=== PATIENT | female | born 1970 | race Caucasian/White ===

== ENCOUNTER → 2024-05-10 12:28 | Outpatient (REF) | payer OTHER, SELFPAY | LOC: HWRAD 12:28 | PROVIDERS: ATTENDING PHYSICIAN Family Medicine | DX: I88.9 Nonspecific lymphadenitis, unspecified (principal); M54.2 Cervicalgia | CPT/HCPCS: 70491; Q9967 ==

== ENCOUNTER → 2024-05-17 09:32 | Outpatient (REF) | payer OTHER, SELFPAY | LOC: WDC 09:32 | PROVIDERS: ATTENDING PHYSICIAN Family Medicine | DX: N63.20 Unspecified lump in the left breast, unspecified quadrant (principal); R92.8 Other abnormal and inconclusive findings on diagnostic imaging of breast | CPT/HCPCS: 77061; 77065 ==

== ENCOUNTER → 2024-08-17 09:52 | Outpatient (REF) | payer OTHER, SELFPAY | LOC: PAVMRI 09:52 | PROVIDERS: ATTENDING PHYSICIAN Family Medicine | DX: M54.12 Radiculopathy, cervical region (principal) | CPT/HCPCS: 72141; 72148 ==

== ENCOUNTER 2024-11-06 10:58 | Emergency (ER) | payer OTHER, SELFPAY ==
[2024-11-06 10:59] VITALS: BP 157/96
--- NOTE | 2024-11-06 11:58 | ED.GENMED ---
History of Present Illness
<LYNDSEY Perez Last Filed: 11/06/24 12:01>
General
Chief Complaint: Vaginal Bleeding
Source: patient
Exam Limitations: none
Time Seen by Provider: 11/06/24 11:45
History of Present Illness
History of Present Illness:
54-year-old female presents complaining of lower abdominal pain for the past several days. The pain was severe this morning the pain then went away but she started with heavy vaginal bleeding the pain resided. She has not had a menstrual cycle in
5 months. Of note 2 weeks ago she was found to have walking pneumonia was treated with prednisone and doxycycline. She finished the [employer] psych about 6 days ago and since then has been having loose stools. She was complaining of pain and loose
stool and family doctor placed her on Flagyl potential C. difficile. No fevers. She spoke with her ACQUISITION EDITOR as she started bleeding heavily this morning and was advised to come here for further evaluation
Past History
<LYNDSEY Perez Last Filed: 11/06/24 12:01>
Past History
ED Past Medical History: Asthma and Other
ED Past Surgical History:
Social History
Tobacco: Non-smoker
Alcohol: None
Drug: None
Personal:
Living: with family
Employment: Employed
Family History
Family History: Hypertension
Phy Exam
<LYNDSEY Perez Last Filed: 11/06/24 12:01>
Physical Exam
Physical Exam:
General: Well appearing female NAD
HEENT: NC/AT
Heart: RRR, no murmurs
Lungs: Clear no wheeze
Abdomen: Soft tender to lower abdomen bilaterally no guarding or rebound
Extremities: No cyanosis
Course
<LYNDSEY Perez Last Filed: 11/06/24 12:01>
Orders/Labs/Results
Orders:
Orders
11/06/24 11:54
0.9% Sodium Chloride 1000 ml [Nss] 1,000 ml IV BOLUS
US Pelvis W Transvag Combined Urgent
Comment:
Reason For Exam: pain, bleeding
11/06/24 13:39
Complete Blood Count/With Diff Urgent
Comprehensive Metabolic Panel Urgent
Urinalysis Urgent
Urine Microscopic Urgent
11/06/24 13:50
CT Abd/Pel (IV only)-DH only Urgent
Reason For Exam: VAGINAL BLEEDING
Abnormal Lab Results
11/06/24
13:39
RBC 4.04 L 10^6/uL
(4.20-5.40)
Hct 36.0 L %
(37.0-47.0)
Monocytes % 10.4 H %
(1.7-9.3)
Chloride 108 H mmol/L
(98-107)
Carbon Dioxide 31 H mmol/L
(22-30)
Urine Occult Blood 4+ A
(Negative)
Urine RBC 26-30 A /HPF
(0-2)
Urine Bacteria Few A
(Negative)
11/06/24 13:39
11/06/24 13:39
Vital Signs
Initial and Last Documented VS:
Initial Vital Signs
Temp Pulse Resp BP Pulse Ox
98.4 F 87 16 157/96 100
11/06/24 10:59 11/06/24 10:59 11/06/24 10:59 11/06/24 10:59 11/06/24 10:59
Last Documented Vital Signs
Temp Pulse Resp BP Pulse Ox
98.4 F 87 18 130/91 99
11/06/24 10:59 11/06/24 17:48 11/06/24 14:30 11/06/24 17:42 11/06/24 17:43
<Rod Grace PA-C - Last Filed: 11/06/24 18:34>
Orders/Labs/Results
Orders:
Orders
11/06/24 11:54
0.9% Sodium Chloride 1000 ml [Nss] 1,000 ml IV BOLUS
US Pelvis W Transvag Combined Urgent
Comment:
Reason For Exam: pain, bleeding
11/06/24 13:39
Complete Blood Count/With Diff Urgent
Comprehensive Metabolic Panel Urgent
Urinalysis Urgent
Urine Microscopic Urgent
11/06/24 13:50
CT Abd/Pel (IV only)-DH only Urgent
Reason For Exam: VAGINAL BLEEDING
Abnormal Lab Results
11/06/24
13:39
RBC 4.04 L 10^6/uL
(4.20-5.40)
Hct 36.0 L %
(37.0-47.0)
Monocytes % 10.4 H %
(1.7-9.3)
Chloride 108 H mmol/L
(98-107)
Carbon Dioxide 31 H mmol/L
(22-30)
Urine Occult Blood 4+ A
(Negative)
Urine RBC 26-30 A /HPF
(0-2)
Urine Bacteria Few A
(Negative)
11/06/24 13:39
11/06/24 13:39
Vital Signs
Initial and Last Documented VS:
Initial Vital Signs
Temp Pulse Resp BP Pulse Ox
98.4 F 87 16 157/96 100
11/06/24 10:59 11/06/24 10:59 11/06/24 10:59 11/06/24 10:59 11/06/24 10:59
Last Documented Vital Signs
Temp Pulse Resp BP Pulse Ox
98.4 F 87 18 130/91 99
11/06/24 10:59 11/06/24 17:48 11/06/24 14:30 11/06/24 17:42 11/06/24 17:43
<Jhon Ortiz PA-C - Last Filed: 11/06/24 12:01>
MDM/Problems Addressed
Differential Diagnosis Includes:
Lower abdominal pain with vaginal bleeding. Consider fibroid versus ovarian cyst versus colitis given recent antibiotic use. Stool culture was given to [facility] as an outpatient today. C. difficile test was included in that regimen.
Will check labs. Ultrasound pelvis ordered.
<Rod Grace PA-C - Last Filed: 11/06/24 18:34>
*Critical Care Note
Total Time (30-74mins, 75-104mins- exclusive of procedures): Not Applicable
<Rod Grace PA-C - Last Filed: 11/06/24 18:34>
Patient Management
Discussion with other providers: Search Engine Marketing Manager
Escalation/DeEscalation of care consider admission/obs:
Patient received in signout at [address] scan results and reassessment.
CT scan findings of endocervical canal distention concerning for possible intraluminal mass with diagnostic possibilities cervical or endometrial carcinoma discussed with the patient and patient was provided with a printout of this CT as well as her
previous ultrasound report earlier today. Bleeding has since subsided significantly and patient remains hemodynamically stable. Patient was in contact with her ACQUISITION EDITOR already today but currently does not have an appointment scheduled. Patient was
provided with printouts of all of her studies and I contacted patient's [facility] office, Dr. Castellon, and spoke with the on-call provider who will place a note in patient's chart and have the office contact the patient for follow-up. Patient is aware
of return precautions and otherwise stable for discharge home.
ED Attending Note
<Jhon Ortiz PA-C - Last Filed: 11/06/24 12:01>
-
Portions of this chart may have been created with voice recognition software.� Occasional wrong word or��sound alike� substitutions may have occurred due to the inherent limitations of voice recognition software.
Discharge Plan
Departure
Patient Disposition: Home (Routine Discharge)
Date of Disposition: 11/06/24
Time of Disposition: 17:21
Patient with high blood pressure during this ER visit?: Yes
Discharge Problem:
Menorrhagia
Instructions: Bleeding After Menopause
Prescriptions:
No Action
mometasone [Nasonex] 17 GRAM spray,non-aerosol
2 spray intranasal DAILY Qty: 1 0RF
codeine-guaifenesin [Guaiatussin AC] 200 MG/20 MG liquid
5 - 10 ml PO .Q4-6HPRN PRN (Reason: COUGH) Qty: 6 0RF
levofloxacin 500 MG tablet
500 mg PO DAILY Qty: 10 0RF
methylprednisolone [Medrol (Kyle)] 4 MG/DOSE-PACK tablets,dose pack
4 mg PO . DIRECTED Qty: 1 0RF
Rx Instructions:
Take as instructed on package.
albuterol sulfate 1 PUFF HFA aerosol inhaler
1 - 2 puff inhalation .Q4-6HPRN PRN (Reason: WHEEZING) Qty: 1 0RF
oxymetazoline [Afrin Sinus (oxymetazoline)] 30 SPRAYS/15 ML spray,non-aerosol
2 sprays intranasal BID Qty: 15 0RF
acetaminophen 325 MG tablet
650 mg PO Q4HPRN PRN (Reason: pain/fever)
azelastine 137 MCG/SPRAY aerosol,spray
1 spray intranasal DAILY
fexofenadine-pseudoephedrine 1 EACH tablet extended release 12 hr
1 ea PO DAILY
budesonide-formoterol [Symbicort] 10.2 GM HFA aerosol inhaler
2 puff inhalation R BID
Xopenex
PRN PRN (Reason: sob)
Zithromax Z-Kyle
PO BID
Patient Comments:
5 day treatment, to finish on Monday09/28/2009
Referrals:
Jennifer Sal DO [Family Provider, Family Practice]
Interventions
Interventions:
*Risk Screen - Suicide Last Done: 11/06/24 11:02
*General Assessment Last Done: 11/06/24 14:30
*Neglect/Abuse Screening Last Done: 11/06/24 11:02
*ED- Fall Risk Assessment Last Done: 11/06/24 17:52
*ED COVID-19 Vaccine History Last Done: 11/06/24 16:05
*Nursing Disposition Last Done: 11/06/24 17:50
ED-Female Genitourinary Assessment Last Done: 11/06/24 12:00
Discharge Date and Time
Discharge Date/Time: 11/06/24 17:53
Print Language: MONEGASQUE
[2024-11-06 14:30] VITALS: BP 118/77
[2024-11-06 16:12] VITALS: BP 131/96
--- NOTE | 2024-11-06 16:30 | DOWNTIME ---
There was a [employer] Client Polymer Engineer Downtime on 11/06/2024 from 1230 to 11/06/2024 at 1550. Downtime documentation of patient's care, including medication administrations, has been reconciled in the electronic record per guidelines. Refer to the
patient's paper chart under the miscellaneous tab to see printed paper medication records and downtime forms.
[2024-11-06 17:03] LABS: Urine Albumin Negative (Neg - Trace); Urine Bilirubin Negative (Negative); Urine Character Clear (Clear); Urine Color Yellow; Urine Glucose Negative (Negative); Urine Ketone Negative (Negative); Urine Leukocyte Negative (Negative); Urine Nitrite Negative (Negative); Urine Occult Blood 4+ (Negative); Urine Urobilinogen Negative (Neg - 1+)
[2024-11-06 17:05] LABS: Urine Bacteria Few (Negative); Urine Red Blood Cell 26-30 /HPF (0-2); Urine White Cell 0-2 /HPF (0-5)
[2024-11-06 17:42] VITALS: BP 130/91
[2024-11-06 17:46] LABS: % Basophils 0.3 % (0-2); % Eosinophils 4.4 % (0-6); % Immature Granulocytes 0.3 % (0-0.5); % Lymphocytes 21.9 % (20.5-51.1); % Monocytes 10.4 % (1.7-9.3); % Neutrophils 62.7 % (42.2-75.2); Absolute Eosinophils 0.3 10^3/uL (0-0.7); Absolute Lymphocytes 1.3 10^3/uL (1.2-3.4); Absolute Monocytes 0.6 10^3/uL (0.1-0.6); Absolute Neutrophils 3.8 10^3/uL (1.4-6.5); Hemoglobin 12.1 g/dL (12.0-16.0); Mean Corp Hgb Conc. 33.6 g/dL (33.0-37.0); Mean Corpuscular Volume 89.1 fL (81.0-99.0); Mean Platelet Volume 9.6 fL (7.4-10.4); Nucleated Red Blood Cells % 0 %; Platelet Count 273 10^3/uL (130-400); Red Blood Cell Count 4.04 10^6/uL (4.20-5.40); Red Cell Dist. Width 13.6 % (11.5-14.5); White Blood Cell Count 6.1 10^3/uL (4.8-10.8)
[2024-11-06 17:47] LABS: ALT (SGPT) 23 U/L (0-35); AST (SGOT) 20 U/L (14-36); Albumin 4.2 g/dl (3.5-5.0); Alkaline Phosphatase 60 U/L (38-126); Blood Urea Nitrogen 11 mg/dl (7-17); Calcium 9.2 mg/dl (8.4-10.2); Carbon Dioxide 31 mmol/L (22-30); Chloride 108 mmol/L (98-107); Glucose 86 mg/dl (70-99); Potassium 4.3 mmol/L (3.5-5.1); Sodium 140 mmol/L (135-145); Total Bilirubin 0.5 mg/dl (0.2-1.3); Total Protein 7.1 g/dl (6.3-8.2); eGFR > 60.00
== END 2024-11-06 17:53 | disposition home or self-care (01) ==
LOC: EMR 10:58
PROVIDERS: Physician Assistant; EMERGENCY PHYSICIAN Student in an Organized Health Care Education/Training Program; FAMILY PHYSICIAN Family Medicine; OTHER PHYSICIAN Obstetrics & Gynecology
DX: N92.0 Excessive and frequent menstruation with regular cycle (principal); R93.89 Abnormal findings on diagnostic imaging of other specified body structures; J45.909 Unspecified asthma, uncomplicated
CPT/HCPCS: 99284; 74177; 76830; 76856; 80053; 81003; 81015; 85025; Q9967

== ENCOUNTER → 2025-05-13 16:04 | Outpatient (REF) | payer OTHER, SELFPAY | LOC: PAVMRI 16:04 | PROVIDERS: ATTENDING PHYSICIAN Psychiatry & Neurology Neurology; FAMILY PHYSICIAN Family Medicine | DX: R42 Dizziness and giddiness (principal) | CPT/HCPCS: 70551 ==